=== PATIENT | male | born 2005 | race Caucasian/White ===

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

== ENCOUNTER 2023-06-18 19:28 | Emergency (ER) | payer BC, OTHER ==
[2023-06-18 20:31] VITALS: TEMP 99
--- NOTE | 2023-06-18 21:17 | ED ---
URI HPI - General Chief Complaint: Upper Respiratory Infection Stated Complaint: Bodyache,Congestion Time Seen by Provider: 06/18/23 21:15 Source: patient, RN notes reviewed Mode of arrival: ambulatory Limitations: no limitations - History of Present Illness Initial Comments: Patient is a 17-year-old male presenting to the ER with a chief complaint of m yalgias and runny nose. He also is reporting congestion and mild cough. He states has been going on since Sunday. He states his sister also recently had similar symptoms. He has been taking [id number] DayQuil for symptom control. He denies any sore throat. Denies any difficulty breathing, chest pain, fevers, nausea, vomiting, abdominal pain, constipation/diarrhea, urinary complaints or peripheral edema. - Related Data Home Medications Medication Instructions Recorded Confirmed Methylphenidate HCl [Concerta] 72 mg PO DAILY 01/25/15 08/28/17 guanFACINE HCL [Intuniv] 4 mg PO HS 01/25/15 08/28/17 lamoTRIgine [LaMICtal] 100 mg PO HS 01/25/15 08/28/17 Cetirizine HCl [Zyrtec] 10 mg PO HS 05/25/16 08/28/17 Ibuprofen [Motrin Ib] 600 mg PO Q6H PRN 08/28/17 08/28/17 Montelukast [Singulair] 10 mg PO HS 08/28/17 08/28/17 Previous Rx's Medication Instructions Recorded Albuterol Inhaler [Ventolin Hfa 1 - 2 puff INHALATION Q4-6H PRN #1 08/28/17 Inhaler] inhaler Azithromycin [Zithromax Z-pack (6 0 mg PO DIRECTED #6 tab 08/28/17 tabs)] Allergies Allergy/AdvReac Type Severity Reaction Status Date / Time No Known Allergies Allergy Verified 06/18/23 20:01 Review of Systems ROS Statement: Those systems with pertinent positive or pertinent negative responses have been documented in the HPI. ROS Other: All systems not noted in ROS Statement are negative. Past Medical History Past Medical History: No Reported History Additional Past Medical History / Comment(s): seperation anxiety History of Any Multi-Drug Resistant Organisms: None Reported Past Surgical History: Adenoidectomy, Ear Surgery, Tonsillectomy Additional Past Surgical History / Comment(s): ear tubes Past Psychological History: ADD/ADHD, Bipolar Smoking Status: Never smoker Past Alcohol Use History: None Reported Past Drug Use History: None Reported General Exam Limitations: no limitations General appearance: alert, in no apparent distress Head exam: Present: atraumatic, normocephalic, normal inspection Eye exam: Present: normal appearance, PERRL, EOMI. Absent: scleral icterus, conjunctival injection, periorbital swelling ENT exam: Present: normal exam, normal oropharynx, mucous membranes moist, TM's normal bilaterally Neck exam: Present: normal inspection. Absent: tenderness, meningismus, lymphadenopathy Respiratory exam: Present: normal lung sounds bilaterally. Absent: respiratory distress, wheezes, rales, rhonchi, stridor Cardiovascular Exam: Present: regular rate, normal rhythm, normal heart sounds. Absent: systolic murmur, diastolic murmur, rubs, gallop, clicks GI/Abdominal exam: Present: soft, normal bowel sounds. Absent: distended, tenderness, guarding, rebound, rigid Neurological exam: Present: alert, oriented X3, CN II-XII intact Psychiatric exam: Present: normal affect, normal mood Skin exam: Present: warm, dry, intact, normal color. Absent: rash Course Vital Signs 06/18/23 19:58 Temperature 99 F Pulse Rate 100 Respiratory 18 Rate Blood Pressure 143/88 O2 Sat by Pulse 97 Oximetry Medical Decision Making - Medical Decision Making Was pt. sent in by a medical professional or institution (BEATRICE Gavin, SALES PROMOTION MANAGER, urgent care, hospital, or fpc...) When possible be specific @ -No Did you speak to anyone other than the patient for history (EMS, parent, family, police, friend...)? What history was obtained from this source @ -No Did you review nursing and triage notes (agree or disagree)? Why? @ -I reviewed and agree with nursing and triage notes Were old charts reviewed (outside hosp., previous admission, EMS record, old EKG, old radiological studies, urgent care reports/EKG's, fpc records)? Report findings @ -No old charts were reviewed Differential Diagnosis (chest pain, altered mental status, abdominal pain women, abdominal pain men, vaginal bleeding, weakness, fever, dyspnea, syncope, headache, dizziness, GI bleed, back pain, seizure, CVA, palpatations, mental health, musculoskeletal)? @ -COVID, RSV, influenza, viral sinusitis, pneumonia this list is not meant to be all-inclusive EKG interpreted by me (3pts min.). @ -None X-rays interpreted by me (1pt min.). @ -Chest x-ray interpreted by me negative for acute process. CT interpreted by me (1pt min.). @ -None done U/S interpreted by me (1pt. min.). @ -None done What testing was considered but not performed or refused? (CT, X-rays, U/S, labs)? Why? @ -None What meds were considered but not given or refused? Why? @ -None Did you discuss the management of the patient with other professionals (professionals i.e. , PA, SALES PROMOTION MANAGER, lab, RT, psych nurse, social security assessor, international project engineer, teacher, canine enforcement officer, case checker)? Give summary @ -No Was smoking cessation discussed for >3mins.? @ -No Was critical care preformed (if so, how long)? @ -No Were there social determinants of health that impacted care today? How? (Homelessness, low income, unemployed, alcoholism, drug addiction, transportation, low edu. Level, literacy, decrease access to med. care, [facility], rehab)? @ -No Was there de-escalation of care discussed even if they declined (Discuss DNR or withdrawal of care, Hospice)? DNR status @ -No What co-morbidities impacted this encounter? (DM, HTN, Smoking, COPD, CAD, Cancer, CVA, ARF, Chemo, Hep., AIDS, mental health diagnosis, sleep apnea, morbid obesity)? @ -None Was patient admitted / discharged? Hospital course, mention meds given and route, prescriptions, significant lab abnormalities, going to OR and other pertinent info. @ -Discharge. Patient is a 17-year-old male presenting to the ER with a chief complaint of myalgias and runny nose. History and physical exam completed. Vitals stable. Patient in no signs of acute distress and nontoxic-appearing. Lung sounds clear to auscultation bilaterally. COVID, influenza, RSV negative. Chest x-ray interpreted by me negative for acute cardiopulmonary process. Patient received by mouth Tylenol for symptom control in the ER. Results discussed with patient, all questions answered. Advised [id number] Tylenol and Motrin for symptom control. Return parameters discussed. Patient discharged in stable condition with follow-up to PCP. Patient expressed understanding and agreement with care plan. Case discussed with ED attending, Dr. Roberto. Undiagnosed new problem with uncertain prognosis? @ -No Drug Therapy requiring intensive monitoring for toxicity (Heparin, Nitro, Insulin, Cardizem)? @ -No Were any procedures done? @ -No Diagnosis/symptom? @ -Viral sinusitis/viral illness Acute, or Chronic, or Acute on Chronic? @ -Acute Uncomplicated (without systemic symptoms) or Complicated (systemic symptoms)? @ -Uncomplicated Side effects of treatment? @ -No Exacerbation, Progression, or Severe Exacerbation? @ -No Poses a threat to life or bodily function? How? (Chest pain, [place], [place], pneumonia, PE, COPD, DKA, ARF, appy, cholecystitis, CVA, Diverticulitis, Homicidal, Suicidal, threat to staff... and all critical care pts) @ -No - Lab Data Lab Results 06/18/23 Range/Units 20:01 Influenza Type A (PCR) Not Detected (Not Detectd) Influenza Type B (PCR) Not Detected (Not Detectd) RSV (PCR) Not Detected (Not Detectd) SARS-CoV-2 (PCR) Not Detected (Not Detectd) - Radiology Data Radiology results: image reviewed Disposition Clinical Impression: Viral infection, Acute viral sinusitis Disposition: HOME SELF-CARE Condition: Stable Additional Instructions: Alternate OTC tylenol and motrin for symptom control. Follow-up with PCP. Return to the ER for any new or worsening symptoms. Is patient prescribed a controlled substance at d/c from ED?: No Referrals: Nonstaff,Physician [Primary Care Provider] - 1-2 days Time of Disposition: 22:04
[2023-06-18] MEDS: ACETAMINOPHEN TAB 325 MG TAB PO STA (21:30)
--- NOTE | 2023-06-18 22:27 | XR ---
EXAMINATION TYPE: XR chest 2V DATE OF EXAM: 06/18/2023 8:09 PM CLINICAL INDICATION:Male, 17 years old with history of cough; [facility] COMPARISON: Chest radiographs from 08/28/2018 TECHNIQUE: XR chest 2V Frontal and lateral views of the chest. FINDINGS: Lungs/Pleura: There is no evidence of pleural effusion, focal consolidation, or pneumothorax. Pulmonary vascularity: Unremarkable. Heart/mediastinum: Cardiomediastinal silhouette is unremarkable. Musculoskeletal: No acute osseous pathology. IMPRESSION: No acute cardiopulmonary disease/process.
[2023-06-18 22:44] VITALS: BP 123/81; PULSE 76; RESP 20
== END 2023-06-18 22:21 | disposition home or self-care (01) ==
LOC: EC 19:28
DX: B34.9 Viral infection, unspecified (principal); J01.90 Acute sinusitis, unspecified
CPT/HCPCS: 71046; 87636; 99283

== ENCOUNTER 2024-04-18 10:11 | Observation (INO) | payer BC, OTHER ==
[2024-04-18] MEDS: MORPHINE SULFATE 4 MG/ML SYRINGE IVP STA (10:36)
[2024-04-18] MEDS: SODIUM CHLORIDE 0.9% 1,000 ML IV STA (10:37)
[2024-04-18 10:42] LABS: Basophils # (A) 0.1 k/uL (0-0.2); Basophils % (A) 1 %; Eosinophils # (A) 0.1 k/uL (0-0.7); Eosinophils % (A) 2 %; HGB 16.3 gm/dL (13.0-17.5); Lymphocytes # (A) 2.2 k/uL (1.0-4.8); Lymphocytes % (A) 27 %; MCH 31.3 pg (25.0-35.0); MCHC 35.4 g/dL (31.0-37.0); MCV 88.4 fL (80.0-100.0); Mean Platelet Volume 7.1; Monocytes # (A) 0.5 k/uL (0-1.0); Monocytes % (A) 6 %; Neutrophils % (A) 62 %; Platelet Count 235 k/uL (150-450); RBC 5.21 m/uL (4.30-5.90); RDW 12.1 % (11.5-15.5)
[2024-04-18 10:51] LABS: ALT 25 U/L (4-49); AST 30 U/L (17-59); African American GFR (CKD) >90 (>60 ml/min/1.73 sqM); Albumin 4.4 g/dL (3.5-5.0); Alkaline Phosphatase 66 U/L (38-126); Anion Gap 8 mmol/L; Appearance,Urine Clear (Clear); Bilirubin,Urine Negative (Negative); Blood Urea Nitrogen 20 mg/dL (9-20); Blood,Urine Negative (Negative); Calcium 9.5 mg/dL (8.4-10.2); Carbon Dioxide 27 mmol/L (22-30); Chloride 105 mmol/L (98-107); Color,Urine Light Yellow; Glucose 115 mg/dL (74-99); Glucose,Urine (UA) Negative (Negative); Ketones,Urine Negative (Negative); Leukocyte Esterase,Urine Small (Negative); Lipase 81 U/L (23-300); Mucus,Urine Rare /hpf; Nitrite,Urine Negative (Negative); Non-African American GFR(CKD) >90 (>60 ml/min/1.73 sqM); PH, Urine 6.5 (5.0-8.0); Potassium 3.6 mmol/L (3.5-5.1); Protein,Urine Negative (Negative); RBC,Urine 1 /hpf (0-5); Sodium 140 mmol/L (137-145); Specific Gravity,Urine 1.022 (1.001-1.035); Total Bilirubin 0.4 mg/dL (0.2-1.3); Urobilinogen,Urine <2.0 mg/dL (<2.0); WBC,Urine 3 /hpf (0-5)
--- NOTE | 2024-04-18 11:28 | US ---
EXAMINATION TYPE: US scrotum with doppler. DATE OF EXAM: 04/18/2024 COMPARISON: NONE CLINICAL INDICATION: Male, 18 years old with history of testicular pain; Left testicular pain TECHNIQUE: Grayscale, color Doppler and spectral Doppler imaging of the scrotum. FINDINGS: EXAM MEASUREMENTS: TESTICLES: Right Testicle: 4.3 x 2.0 x 2.8 cm Left Testicle: 3.9 x 2.7 x 3.0 cm EPIDIDYMIS HEAD: Right Epididymis: 1.5 cm Left Epididymis: not seen Doppler performed to assess for testicular vascularity; good color flow and spectral waveforms are se en within the right testicle. NO COLOR FLOW SEEN WITHIN LEFT TESTICLE AT THIS TIME. Presence of hydroceles: left - 3.6cm Presence of varicoceles: no IMPRESSION: 1. Left testicular torsion. Report was called to the emergency room physician by Dr. Driscoll by telep raoul at the time of interpretation 1125 hours. [facility], Workstation: [facility], 04/18/2024 11:26 AM
[2024-04-18] MEDS ORDERED: MORPHINE SULFATE 4 MG/ML SYRINGE IV PRN (11:35)
[2024-04-18] MEDS ORDERED: NALOXONE 0.4 MG/ML 1 ML VIAL IV PRN (11:35)
--- NOTE | 2024-04-18 11:35 | ED ---
Abdominal Pain HPI - General Chief Complaint: Abdominal Pain Stated Complaint: Testicle Pain Time Seen by Provider: 04/18/24 10:15 Source: patient, EMS Mode of arrival: EMS - History of Present Illness Initial Comments: 18-year-old male with no past medical history who presents emergency department reporting left testicular pain. States the pain started less than an hour ago and it was sudden onset. States that he feels like his testicles are both swollen. Patient did urinate and stated that he felt like he had improvement in his symptoms when he went to the bathroom. He denies having any fevers. Patient is sexually active with 1 partner. Denies concern for sexually transmitted infections. No penile discharge. No hematuria. No malodorous urine. No history of recurrent urinary tract infections. He denies any trauma to the area. No issues with his bowel or bladder habits. No other alleviating, precipitating or modifying factors - Related Data Home Medications Medication Instructions Recorded Confirmed Methylphenidate HCl [Concerta] 72 mg PO DAILY 01/25/15 08/28/17 guanFACINE HCL [Intuniv] 4 mg PO HS 01/25/15 08/28/17 lamoTRIgine [LaMICtal] 100 mg PO HS 01/25/15 08/28/17 Cetirizine HCl [Zyrtec] 10 mg PO HS 05/25/16 08/28/17 Ibuprofen [Motrin Ib] 600 mg PO Q6H PRN 08/28/17 08/28/17 Montelukast [Singulair] 10 mg PO HS 08/28/17 08/28/17 Previous Rx's Medication Instructions Recorded Albuterol Inhaler [Ventolin Hfa 1 - 2 puff INHALATION Q4-6H PRN #1 08/28/17 Inhaler] inhaler Azithromycin [Zithromax Z-pack (6 0 mg PO DIRECTED #6 tab 08/28/17 tabs)] Allergies Allergy/AdvReac Type Severity Reaction Status Date / Time No Known Allergies Allergy Verified 04/18/24 10:22 Review of Systems ROS Statement: Those systems with pertinent positive or pertinent negative responses have been documented in the HPI. ROS Other: All systems not noted in ROS Statement are negative. Past Medical History Past Medical History: No Reported History Additional Past Medical History / Comment(s): Seperation anxiety History of Any Multi-Drug Resistant Organisms: None Reported Past Surgical History: Adenoidectomy, Ear Surgery, Tonsillectomy Additional Past Surgical History / Comment(s): ear tubes Past Psychological History: ADD/ADHD, Anxiety, Bipolar Smoking Status: Vaper Past Alcohol Use History: None Reported Past Drug Use History: None Reported General Exam General appearance: alert, in distress Head exam: Present: atraumatic, normocephalic, normal inspection Eye exam: Present: normal appearance, PERRL, EOMI. Absent: scleral icterus, conjunctival injection, periorbital swelling ENT exam: Present: normal exam, mucous membranes moist Neck exam: Present: normal inspection. Absent: tenderness, meningismus, lymphadenopathy Respiratory exam: Present: normal lung sounds bilaterally. Absent: respiratory distress, wheezes, rales, rhonchi, stridor exam: Present: testicular tenderness (left>right. indurated testicle), scrotal swelling. Absent: circumcision Course Vital Signs 04/18/24 04/18/24 10:13 11:35 Temperature 97.8 F 97.8 F Pulse Rate 57 L 58 L Respiratory 18 18 Rate Blood Pressure 143/100 147/102 O2 Sat by Pulse 100 100 Oximetry - Reevaluation(s) Reevaluation #1: Spoke with Dr. Lee in regards to torsion - will take patient to OR 04/18/24 11:26 Medical Decision Making - Medical Decision Making Was pt. sent in by a medical professional or institution (, PA, DISTRICT ADMINISTRATIVE ASSISTANT, urgent care, hospital, or assisted...) When possible be specific @ -[No] Did you speak to anyone other than the patient for history (EMS, parent, family, police, friend...)? What history was obtained from this source @ -[No] Did you review nursing and triage notes (agree or disagree)? Why? @ -[I reviewed and agree with nursing and triage notes] Were old charts reviewed (outside hosp., previous admission, EMS record, old EKG, old radiological studies, urgent care reports/EKG's, assisted records)? Report findings @ -[No old charts were reviewed] Differential Diagnosis (chest pain, altered mental status, abdominal pain women, abdominal pain men, vaginal bleeding, weakness, fever, dyspnea, syncope, headache, dizziness, GI bleed, back pain, seizure, CVA, palpatations, mental health, musculoskeletal)? @ -[not applicable] EKG interpreted by me (3pts min.). @ -[As above] X-rays interpreted by me (1pt min.). @ -[None done] CT interpreted by me (1pt min.). @ -[None done] U/S interpreted by me (1pt. min.). @ -[None done] What testing was considered but not performed or refused? (CT, X-rays, U/S, labs)? Why? @ -[None] What meds were considered but not given or refused? Why? @ -[None] Did you discuss the management of the patient with other professionals (professionals i.e. Dr., PA, DISTRICT ADMINISTRATIVE ASSISTANT, lab, RT, psych nurse, social work coordinator, merchandising director, teacher, airfield services officer, case management manager)? Give summary @ -[No] Was smoking cessation discussed for >3mins.? @ -[No] Was critical care preformed (if so, how long)? @ -[No] Were there social determinants of health that impacted care today? How? (Homelessness, low income, unemployed, alcoholism, drug addiction, transportation, low edu. Level, literacy, decrease access to med. care, [facility], rehab)? @ -[No] Was there de-escalation of care discussed even if they declined (Discuss DNR or withdrawal of care, Hospice)? DNR status @ -[No] What co-morbidities impacted this encounter? (DM, HTN, Smoking, COPD, CAD, Cancer, CVA, ARF, Chemo, Hep., AIDS, mental health diagnosis, sleep apnea, morbid obesity)? @ -[None] Was patient admitted / discharged? Hospital course, mention meds given and route, prescriptions, significant lab abnormalities, going to OR and other pertinent info. @ -[hospital course] Undiagnosed new problem with uncertain prognosis? @ -[No] Drug Therapy requiring intensive monitoring for toxicity (Heparin, Nitro, Insulin, Cardizem)? @ -[No] Were any procedures done? @ -[No] Diagnosis/symptom? @ -[default] Acute, or Chronic, or Acute on Chronic? @ -[default] Uncomplicated (without systemic symptoms) or Complicated (systemic symptoms)? @ -[default] Side effects of treatment? @ -[No] Exacerbation, Progression, or Severe Exacerbation? @ -[No] Poses a threat to life or bodily function? How? (Chest pain, USA, AR, pneumonia, PE, COPD, DKA, ARF, appy, cholecystitis, CVA, Diverticulitis, Homicidal, Suicidal, threat to staff... and all critical care pts) @ -[No] - Lab Data Result diagrams: 04/18/24 10:33 04/18/24 10:33 Lab Results 04/18/24 04/18/24 04/18/24 Range/Units 10:33 10:33 10:33 WBC 8.0 (4.0-11.0) k/uL RBC 5.21 (4.30-5.90) m/uL Hgb 16.3 (13.0-17.5) gm/dL Hct 46.0 (39.0-53.0) % MCV 88.4 (80.0-100.0) fL MCH 31.3 (25.0-35.0) pg MCHC 35.4 (31.0-37.0) g/dL RDW 12.1 (11.5-15.5) % Plt Count 235 (150-450) k/uL MPV 7.1 Neutrophils % 62 % Lymphocytes % 27 % Monocytes % 6 % Eosinophils % 2 % Basophils % 1 % Neutrophils # 5.0 (1.3-7.7) k/uL Lymphocytes # 2.2 (1.0-4.8) k/uL Monocytes # 0.5 (0-1.0) k/uL Eosinophils # 0.1 (0-0.7) k/uL Basophils # 0.1 (0-0.2) k/uL Sodium 140 (137-145) mmol/L Potassium 3.6 (3.5-5.1) mmol/L Chloride 105 (98-107) mmol/L Carbon Dioxide 27 (22-30) mmol/L Anion Gap 8 mmol/L BUN 20 (9-20) mg/dL Creatinine 0.94 (0.66-1.25) mg/dL Est GFR (CKD-EPI)AfAm >90 (>60 ml/min/1.73 sqM) Est GFR (CKD-EPI)NonAf >90 (>60 ml/min/1.73 sqM) Glucose 115 H (74-99) mg/dL Plasma Lactic Acid Ravindra 1.4 (0.7-2.0) mmol/L Calcium 9.5 (8.4-10.2) mg/dL Total Bilirubin 0.4 (0.2-1.3) mg/dL AST 30 (17-59) U/L ALT 25 (4-49) U/L Alkaline Phosphatase 66 (38-126) U/L Total Protein 7.0 (6.3-8.2) g/dL Albumin 4.4 (3.5-5.0) g/dL Lipase 81 (23-300) U/L Urine Color Urine Appearance (Clear) Urine pH (5.0-8.0) Ur Specific [place] (1.001-1.035) Urine Protein (Negative) Urine Glucose (UA) (Negative) Urine Ketones (Negative) Urine Blood (Negative) Urine Nitrite (Negative) Urine Bilirubin (Negative) Urine Urobilinogen (<2.0) mg/dL Ur Leukocyte Esterase (Negative) Urine RBC (0-5) /hpf Urine WBC (0-5) /hpf Urine Mucus (None) /hpf 04/18/24 Range/Units 10:33 WBC (4.0-11.0) k/uL RBC (4.30-5.90) m/uL Hgb (13.0-17.5) gm/dL Hct (39.0-53.0) % MCV (80.0-100.0) fL MCH (25.0-35.0) pg MCHC (31.0-37.0) g/dL RDW (11.5-15.5) % Plt Count (150-450) k/uL MPV Neutrophils % % Lymphocytes % % Monocytes % % Eosinophils % % Basophils % % Neutrophils # (1.3-7.7) k/uL Lymphocytes # (1.0-4.8) k/uL Monocytes # (0-1.0) k/uL Eosinophils # (0-0.7) k/uL Basophils # (0-0.2) k/uL Sodium (137-145) mmol/L Potassium (3.5-5.1) mmol/L Chloride (98-107) mmol/L Carbon Dioxide (22-30) mmol/L Anion Gap mmol/L BUN (9-20) mg/dL Creatinine (0.66-1.25) mg/dL Est GFR (CKD-EPI)AfAm (>60 ml/min/1.73 sqM) Est GFR (CKD-EPI)NonAf (>60 ml/min/1.73 sqM) Glucose (74-99) mg/dL Plasma Lactic Acid Ravindra (0.7-2.0) mmol/L Calcium (8.4-10.2) mg/dL Total Bilirubin (0.2-1.3) mg/dL AST (17-59) U/L ALT (4-49) U/L Alkaline Phosphatase (38-126) U/L Total Protein (6.3-8.2) g/dL Albumin (3.5-5.0) g/dL Lipase (23-300) U/L Urine Color Light Yellow Urine Appearance Clear (Clear) Urine pH 6.5 (5.0-8.0) Ur Specific [place] 1.022 (1.001-1.035) Urine Protein Negative (Negative) Urine Glucose (UA) Negative (Negative) Urine Ketones Negative (Negative) Urine Blood Negative (Negative) Urine Nitrite Negative (Negative) Urine Bilirubin Negative (Negative) Urine Urobilinogen <2.0 (<2.0) mg/dL Ur Leukocyte Esterase Small H (Negative) Urine RBC 1 (0-5) /hpf Urine WBC 3 (0-5) /hpf Urine Mucus Rare H (None) /hpf Disposition Clinical Impression: Testicle pain, Testicular torsion Disposition: ADMITTED IP TO THIS [facility] Condition: Serious Is patient prescribed a controlled substance at d/c from ED?: No Referrals: None,Stated [Primary Care Provider] - 1-2 days Time of Disposition: 11:35 Decision to Admit Reason: Admit from EC Decision Date: 04/18/24 Decision Time: 11:35
[2024-04-18] MEDS: SODIUM CHLORIDE 0.9% 1,000 ML IV SCH (11:43)
[2024-04-18] MEDS: SODIUM CHLORIDE 0.9% 1,000 ML IV ONE (11:52)
[2024-04-18] MEDS: DEXAMETHASONE SOD PHOSPHATE 4 MG/ML 1 ML VIAL IVP STA (12:09)
[2024-04-18] MEDS: ONDANSETRON 4 MG/2 ML VIAL IVP STA (12:09)
[2024-04-18] MEDS: FAMOTIDINE 20 MG/2 ML VIAL IV STA (12:10)
[2024-04-18] MEDS ORDERED: MIDAZOLAM 2 MG/2 ML VIAL ONE (12:13)
[2024-04-18] MEDS ORDERED: LIDOCAINE 1% INJ 10MG/ML (20 ML MDV) ONE (12:13)
[2024-04-18] MEDS ORDERED: PROPOFOL 10 MG/ML 20 ML VIAL IV ONE (12:13)
[2024-04-18] MEDS ORDERED: ceFAZolin 1 GM/50 ML BAG (PMX) ONE (12:13)
[2024-04-18] MEDS ORDERED: GLYCOPYRROLATE 0.2 MG/ML 2 ML VIAL ONE (12:13)
[2024-04-18] MEDS ORDERED: fentaNYL (PF) 50 MCG/ML 2 ML AMP ONE (12:13)
--- NOTE | 2024-04-18 12:20 | P.HPIHPCON ---
History of Present Illness H&P Date: 04/18/24 Chief Complaint: Left testicular torsion This is a 18-year-old male presented to the hospital with sudden onset left testicular pain is associated with testicular swelling nausea and vomiting. Denies any similar complaints in the past. No previous surgeries. In the ER he underwent a scrotal ultrasound that showed evidence of left testicular torsion. In the ER he continues to have persistent left testicular pain. Consent for Procedure: I have explained the operation/procedure to the patient, including the risks, benefits, side effects, alternative therapies (including not receiving the proposed treatment or service), the likelihood of the patient achieving his/her goals, and potential recuperation problems for the procedure/sedation/analgesia, as well as any blood products, if indicated. I also explained to the patient the risks, benefits and side effects of the alternatives, as well as the risks related to not receiving the proposed procedure, care, treatment, or services. - Constitutional Constitutional: Reports malaise, Denies chills, Denies fever - EENT Ears, nose, mouth and throat: Denies headache, Denies sore throat - Respiratory Respiratory: Denies cough, Denies 7 - Gastrointestinal Gastrointestinal: Denies abdominal pain, Denies nausea, Denies vomiting - Genitourinary (Female) Genitourinary: Denies dysuria, Denies hematuria - Genitourinary (Male) Genitourinary: Reports testicular pain - Integumentary Integumentary: Denies pruritus, Denies rash - Neurological Neurological: Denies numbness, Denies weakness Past Medical History Past Medical History: No Reported History Additional Past Medical History / Comment(s): Seperation anxiety History of Any Multi-Drug Resistant Organisms: None Reported Past Surgical History: Adenoidectomy, Ear Surgery, Tonsillectomy Additional Past Surgical History / Comment(s): ear tubes Past Psychological History: ADD/ADHD, Anxiety, Bipolar Smoking Status: Vaper Past Alcohol Use History: None Reported Past Drug Use History: None Reported Medications and Allergies Home Medications Medication Instructions Recorded Confirmed Type No Known Home Medications 04/18/24 04/18/24 History Allergies Allergy/AdvReac Type Severity Reaction Status Date / Time No Known Allergies Allergy Verified 04/18/24 11:55 Surgical - Exam Vital Signs Temp Pulse Resp BP Pulse Ox 97.8 F 57 L 18 143/100 100 04/18/24 10:13 04/18/24 10:13 04/18/24 10:13 04/18/24 10:13 04/18/24 10:13 - General no distress, severe pain - Eyes normal ocular movement, no pale - ENT normal nares, normal mucosa - Respiratory normal expansion, normal respiratory effort - Abdomen Abdomen: soft, non tender, no distended - Genitourinary Left testicle swollen, tender to touch - Psychiatric oriented to time, oriented to person, oriented to place Results - Labs 04/18/24 10:33 04/18/24 10:33 Abnormal Lab Results - Last 24 Hours (Table) 04/18/24 04/18/24 Range/Units 10:33 10:33 Glucose 115 H (74-99) mg/dL Ur Leukocyte Esterase Small H (Negative) Urine Mucus Rare H (None) /hpf Diabetes panel 04/18/24 Range/Units 10:33 Sodium 140 (137-145) mmol/L Potassium 3.6 (3.5-5.1) mmol/L Chloride 105 (98-107) mmol/L Carbon Dioxide 27 (22-30) mmol/L BUN 20 (9-20) mg/dL Creatinine 0.94 (0.66-1.25) mg/dL Glucose 115 H (74-99) mg/dL Calcium 9.5 (8.4-10.2) mg/dL AST 30 (17-59) U/L ALT 25 (4-49) U/L Alkaline Phosphatase 66 (38-126) U/L Total Protein 7.0 (6.3-8.2) g/dL Albumin 4.4 (3.5-5.0) g/dL Calcium panel 04/18/24 Range/Units 10:33 Calcium 9.5 (8.4-10.2) mg/dL Albumin 4.4 (3.5-5.0) g/dL Pituitary panel 04/18/24 Range/Units 10:33 Sodium 140 (137-145) mmol/L Potassium 3.6 (3.5-5.1) mmol/L Chloride 105 (98-107) mmol/L Carbon Dioxide 27 (22-30) mmol/L BUN 20 (9-20) mg/dL Creatinine 0.94 (0.66-1.25) mg/dL Glucose 115 H (74-99) mg/dL Calcium 9.5 (8.4-10.2) mg/dL Adrenal panel 04/18/24 Range/Units 10:33 Sodium 140 (137-145) mmol/L Potassium 3.6 (3.5-5.1) mmol/L Chloride 105 (98-107) mmol/L Carbon Dioxide 27 (22-30) mmol/L BUN 20 (9-20) mg/dL Creatinine 0.94 (0.66-1.25) mg/dL Glucose 115 H (74-99) mg/dL Calcium 9.5 (8.4-10.2) mg/dL Total Bilirubin 0.4 (0.2-1.3) mg/dL AST 30 (17-59) U/L ALT 25 (4-49) U/L Alkaline Phosphatase 66 (38-126) U/L Total Protein 7.0 (6.3-8.2) g/dL Albumin 4.4 (3.5-5.0) g/dL Assessment and Plan Assessment: 18-year-old male with history of left testicular torsion, is having intractable pain secondary to that. Discussed given the evidence of torsion he we will need to urgently address that. Discussed with him we will proceed with bilateral orchiopexy possible left orchiectomy. Discussed with him the rationale of doing the contralateral side. Risk benefit and rationale were discussed in details OR for bilateral orchiopexy, possible left orchiectomy
[2024-04-18] MEDS: SODIUM CHLORIDE 0.9% 50 ML with ceFAZolin 2,000 MG IV ONE (12:25)
[2024-04-18] MEDS: BUPIVACAINE (PF) 0.5% 30 ML VIAL SQ ONE ×2 (13:07→13:12)
[2024-04-18] MEDS: LACTATED RINGERS 1,000 ML IV ONE (13:15)
[2024-04-18 13:36] VITALS: TEMP 98
[2024-04-18] MEDS: MEPERIDINE 25 MG/ML SYRINGE IVP STA (13:41)
[2024-04-18 14:34] VITALS: BP 150/76; PULSE 77; RESP 18
--- NOTE | 2024-04-22 13:06 | P.OP ---
Date of Procedure: 04/18/24 Preoperative Diagnosis: Testicular torsion Postoperative Diagnosis: Same Procedure(s) Performed: Bilateral testicular orchiopexy Implants: None Anesthesia: PRIMITIVO Surgeon: Avel Lee Estimated Blood Loss (ml): 10 Pathology: none sent Condition: stable Disposition: PACU Indications for Procedure: 18-year-old male with history of left testicular torsion, is having intractable pain secondary to that. Discussed given the evidence of torsion he we will need to urgently address that. Discussed with him we will proceed with bilateral orchiopexy possible left orchiectomy. Discussed with him the rationale of doing the contralateral side. Risk benefit and rationale were discussed in details Operative Findings: 180 degree torsed left testicle Description of Procedure: Patient brought to the operating room, general anesthesia was induced. Scrotum was prepped and draped in sterile fashion and, patient was placed in a supine position. Next an incision was made along the median raphae using a scalpel. Dartos fascia was dissected down using cautery. Attention was first carried to the left scrotal cavity, the dartos was incised and the testicle was delivered, at this point the testicle was torsed 180 degrees, there was Menard Clapper deformity, the epididymis was loosely attached to the testicle at this point the testicle was detorsed, along the cord there was evidence of redundant tissue which was kinking the cord, at this point the redundant tissue was incised and the cord was straightened out, at this point a warmed moist sponge was placed around the testicle and attention was carried to the right side. An incision was made in the right dartos fascia and the right testicle was delivered, the testicle was within normal limits. At this point the testicle was pexied at 3 points using 4-0 PDS, ensuring the testicle was pexied in normal anatomical lay. Next the dartos fascia along the right hemiscrotum was closed using 2-0 Vicryl, this point attention was carried to the left testicle, and evaluation left testicle did appear to be more consistent with a pinkish color but was still not completely viable, at this point an incision was made in the tunica albuginea, and upon making the incision healthy bleeding was seen from the seminiferous tubules, and at this point the testicle did appear less congested and appeared pink in color. At this point I closed the tunica albuginea using 4-0 PDS, the testicle was observed for 5 minutes and remained viable, at this point the testicle was returned back to the scrotum with normal anatomical lie and pexied in 3 location using 4-0 PDS, dartos fascia was closed using 2-0 Vicryl, skin was closed using 4-0 Monocryl, skin glue was applied to the incision. Patient tolerated procedure well taken to recovery in stable condition
== END 2024-04-18 14:55 | disposition home or self-care (01) ==
LOC: EC 10:11 → 4SSUR 11:35
PROVIDERS: ADMIT Urology; ATTEND Urology
DX: N44.00 Torsion of testis, unspecified (principal)
CPT/HCPCS: 96361; 96374; 99285; 36415; 80053; 83605; 83690; 85025; 81001; 93975; 76870; 54600; J2250; J2270; J1100; J2405; J0690 ×2; J2003; J3010; J3490; J2704; J0665; J1596; J2175

== ENCOUNTER 2024-04-23 06:19 | Emergency (ER) | payer OTHER ==
--- NOTE | 2024-04-23 06:47 | ED ---
Recheck HPI - General Chief Complaint: Recheck/Abnormal Lab/Rx Stated Complaint: Post op bleeding Time Seen by Provider: 04/23/24 06:35 Source: patient, RN notes reviewed Mode of arrival: ambulatory Limitations: no limitations - History of Present Illness Initial Comments: 18-year-old male presents emergency department chief complaint of postoperative bleeding. Patient states he had testicular torsion on 04/18/2024 states his surgeon was Dr. Lee and states that he had some spotting and bleeding over the last few days. He states he woke up this morning there was a little bit more but when he stood up there was some blood that leaked out there was not significant amounts it has been dark blood. He has no increasing pain no fevers or chills no other complaints. - Related Data Previous Rx's Medication Instructions Recorded Ketorolac [Toradol] 10 mg PO Q6HR PRN #15 tab 04/18/24 Allergies Allergy/AdvReac Type Severity Reaction Status Date / Time No Known Allergies Allergy Verified 04/23/24 06:23 Review of Systems ROS Statement: Those systems with pertinent positive or pertinent negative responses have been documented in the HPI. ROS Other: All systems not noted in ROS Statement are negative. Past Medical History Past Medical History: No Reported History, Hypertension Additional Past Medical History / Comment(s): Seperation anxiety History of Any Multi-Drug Resistant Organisms: None Reported Past Surgical History: Adenoidectomy, Ear Surgery, Tonsillectomy Additional Past Surgical History / Comment(s): ear tubes, R testicular sx Past Psychological History: ADD/ADHD, Anxiety, Bipolar Smoking Status: Vaper Past Alcohol Use History: None Reported Past Drug Use History: None Reported General Exam Limitations: no limitations General appearance: alert, in no apparent distress Head exam: Present: atraumatic, normocephalic, normal inspection Respiratory exam: Present: normal lung sounds bilaterally. Absent: respiratory distress, wheezes, rales, rhonchi, stridor Cardiovascular Exam: Present: regular rate, normal rhythm, normal heart sounds. Absent: systolic murmur, diastolic murmur, rubs, gallop, clicks GI/Abdominal exam: Present: soft, normal bowel sounds. Absent: distended, tenderness, guarding, rebound, rigid exam: Present: other (Incision approximated, sutures placed, there is small amount of blood dark in nature that is able to be expressed with no active bleeding otherwise) Course Vital Signs 04/23/24 06:23 Temperature 97.9 F Pulse Rate 82 Respiratory 18 Rate Blood Pressure 147/94 O2 Sat by Pulse 97 Oximetry Medical Decision Making - Medical Decision Making Was pt. sent in by a medical professional or institution (, BEATRICE, HEEL SPRAYER, urgent care, hospital, or snf...) When possible be specific @ -No Did you speak to anyone other than the patient for history (EMS, parent, family, police, friend...)? What history was obtained from this source @ -No Did you review nursing and triage notes (agree or disagree)? Why? @ -I reviewed and agree with nursing and triage notes Were old charts reviewed (outside hosp., previous admission, EMS record, old EKG, old radiological studies, urgent care reports/EKG's, snf records)? Report findings @ -Reviewed surgical records from 04/18/2024 Differential Diagnosis (chest pain, altered mental status, abdominal pain women, abdominal pain men, vaginal bleeding, weakness, fever, dyspnea, syncope, headache, dizziness, GI bleed, back pain, seizure, CVA, palpatations, mental health, musculoskeletal)? @ -Postoperative hemorrhage, postoperative hematoma EKG interpreted by me (3pts min.). @ -None X-rays interpreted by me (1pt min.). @ -None done CT interpreted by me (1pt min.). @ -None done U/S interpreted by me (1pt. min.). @ -None done What testing was considered but not performed or refused? (CT, X-rays, U/S, labs)? Why? @ -None What meds were considered but not given or refused? Why? @ -None Did you discuss the management of the patient with other professionals (professionals i.e. BEATRIEC Gavin, HEEL SPRAYER, lab, RT, psych nurse, social work job titles, loading machine operator helper, teacher, asset protection officer, child support case officer)? Give summary @ -No Was smoking cessation discussed for >3mins.? @ -No Was critical care preformed (if so, how long)? @ -No Were there social determinants of health that impacted care today? How? (Homelessness, low income, unemployed, alcoholism, drug addiction, transportation, low edu. Level, literacy, decrease access to med. care, long term, rehab)? @ -No Was there de-escalation of care discussed even if they declined (Discuss DNR or withdrawal of care, Hospice)? DNR status @ -No What co-morbidities impacted this encounter? (DM, HTN, Smoking, COPD, CAD, Cancer, CVA, ARF, Chemo, Hep., AIDS, mental health diagnosis, sleep apnea, morbid obesity)? @ -None Was patient admitted / discharged? Hospital course, mention meds given and route, prescriptions, significant lab abnormalities, going to OR and other pertinent info. @ -Discharge patient has follow-up appointment with urology. Patient has a postoperative hematoma no significant bleeding patient is discharged in stable condition return parameters gabo. Undiagnosed new problem with uncertain prognosis? @ -No Drug Therapy requiring intensive monitoring for toxicity (Heparin, Nitro, Insulin, Cardizem)? @ -No Were any procedures done? @ -No Diagnosis/symptom? @ -Postoperative hematoma Acute, or Chronic, or Acute on Chronic? @ -Acute Uncomplicated (without systemic symptoms) or Complicated (systemic symptoms)? @ -Uncomplicated Side effects of treatment? @ -No Exacerbation, Progression, or Severe Exacerbation? @ -No Poses a threat to life or bodily function? How? (Chest pain, USA, CT, pneumonia, PE, COPD, DKA, ARF, appy, cholecystitis, CVA, Diverticulitis, Homicidal, Suicidal, threat to staff... and all critical care pts) @ -No Disposition Clinical Impression: Postoperative hematoma Disposition: HOME SELF-CARE Condition: Stable Instructions (If sedation given, give patient instructions): Hematoma (ED) Additional Instructions: Contact urology's office today for follow-up appointment. Please return to the Emergency Department if symptoms worsen or any other concerns. Is patient prescribed a controlled substance at d/c from ED?: No Referrals: Nonstaff,Physician [Primary Care Provider] - 1-2 days Avel Lee MD [STAFF PHYSICIAN] - 1-2 days Time of Disposition: 06:46
[2024-04-23 06:56] VITALS: BP 131/74; PULSE 80; RESP 17; TEMP 98.1
== END 2024-04-23 06:54 | disposition home or self-care (01) ==
LOC: EC 06:19
DX: L76.32 Postprocedural hematoma of skin and subcutaneous tissue following other procedure (principal); F17.290 Nicotine dependence, other tobacco product, uncomplicated
CPT/HCPCS: 99283